=== PATIENT | female | born 1935 | race Caucasian/White ===

== ENCOUNTER 2017-10-26 13:54 | Inpatient (IN) | payer OTHER ==
[~2017-10-26] VITALS: Ht 154.9 cm; Wt 73.7 kg
[2017-10-26] VITALS (8 sets, daily range): BP systolic 122–141; BP diastolic 42–68
[~2017-10-26 13:54] MED LIST: Feosol PO; NOHOMEMEDS; PROTONIX40 MG PO
[2017-10-26 15:12] LABS: CHLORIDE 109 mEq/L (99-109); HEMATOCRIT 15.5 % (36.0-46.0); MCH 14.5 PG (29.0-34.0); MCHC 23.9 G/DL (30.0-36.0); MCV 60.5 FL (83-99); NRBC (%) 0.6 /100 WBC (0-0); RBC DIS.WIDTH-SD 47.8 % (39-53); RED BLOOD COUNT 2.56 M/uL (3.80-5.20); SODIUM 139 mEq/L (136-147); WHITE BLOOD COUNT 4.9 K/uL (4.1-10.2)
[2017-10-26 15:13] LABS: GLUCOSE 101 mg/dL (70-99)
[2017-10-26 15:17] LABS: CREATININE 0.8 mg/dL (0.6-1.3); GFR ESTIMATE (CALCULATED) > 59 mL/min/
[2017-10-26 15:18] LABS: UREA NITROGEN (BUN) 12 mg/dL (9-23)
[2017-10-26 15:23] LABS: HEMOGLOBIN 3.7 G/DL (11.9-15.5)
[2017-10-26 15:29] LABS: PTT 23.6 SEC (25-37)
[2017-10-26 15:40] LABS: TROP-I INTERPRETATION NEGATIVE
[2017-10-26 15:44] LABS: PLAT.SUFFICIENCY ADEQUATE; PLATELET COUNT 352 K/uL (156-360)
[2017-10-26] MEDS ORDERED: VITAMIN D-32000 UNI2 PO (20:24)
[2017-10-26 22:59] LABS: MCHC 27.7 G/DL (30.0-36.0); NRBC (%) 1.3 /100 WBC (0-0); RBC DIS.WIDTH-CV 27.3 % (11.8-14.6); RBC DIS.WIDTH-SD 62.3 % (39-53); WHITE BLOOD COUNT 4.8 K/uL (4.1-10.2)
[2017-10-26 23:00] LABS: HEMOGLOBIN 6.1 G/DL (11.9-15.5); MCH 18.3 PG (29.0-34.0); MCV 66.1 FL (83-99); RED BLOOD COUNT 3.33 M/uL (3.80-5.20)
[2017-10-26 23:37] LABS: IRON 219 MCG/DL (35-150); TRANSFERRIN (TIBC) 322.7 mg/dL (215-380); TRANSFERRIN SATUR. 68 % (20-55)
[2017-10-26 23:41] LABS: APPEARANCE CLEAR ((CLEAR)); BILIRUBIN NEGATIVE; BLOOD NEGATIVE; COLOR YELLOW ((YELLOW)); GLUCOSE (STRIP) NEGATIVE; KETONES NEGATIVE; LEUKOCYTES NEGATIVE; NITRITE NEGATIVE; PROTEIN (STRIP) NEGATIVE; SPECIFIC GRAVITY 1.017 (1.000-1.030); UCUL ADDED? NO; UROBILINOGEN 0.2 MG/DL (0.2-1.0)
[2017-10-26 23:50] LABS: BASOPHIL COUNT 0.1 K/uL (0-0.1); EOSINOPHIL (%) 1.5 % (0-5); EOSINOPHIL COUNT 0.1 K/uL (0-0.3); IMMATURE GRANULOCYTE (%) 0.4 % (0.0-0.7); LYMPHOCYTE (%) 29.4 % (15-42); LYMPHOCYTE COUNT 1.4 K/uL (1.0-2.8); MONOCYTE (%) 8.6 % (3-12); MONOCYTE COUNT 0.4 K/uL (0-0.8); NEUTROPHIL (%) 59.1 % (45-76); NEUTROPHIL COUNT 2.8 K/uL (1.8-6.4); PLAT.SUFFICIENCY ADEQUATE; PLATELET COUNT 302 K/uL (156-360)
[2017-10-27] VITALS (14 sets, daily range): BP systolic 132–163; BP diastolic 62–77
[2017-10-27 00:44] LABS: TROP-I INTERPRETATION NEGATIVE; TROPONIN-I 0.18 ng/mL (0.0-0.30)
[2017-10-27 08:16] LABS: FERRITIN 2 NG/ML (10-291)
[2017-10-27 09:00] LABS: HEMATOCRIT 29.5 % (36.0-46.0); MCH 21.1 PG (29.0-34.0); MCHC 29.8 G/DL (30.0-36.0); PLATELET COUNT 283 K/uL (156-360); RBC DIS.WIDTH-CV 27.8 % (11.8-14.6); RBC DIS.WIDTH-SD 69.2 % (39-53); WHITE BLOOD COUNT 5.2 K/uL (4.1-10.2)
[2017-10-27 09:19] LABS: CHLORIDE 107 MEQ/L (99-109); CREATININE 0.7 MG/DL (0.6-1.3); GFR ESTIMATE (CALCULATED) > 59 mL/min/; GLUCOSE 79 mg/dL (70-99); SODIUM 137 MEQ/L (136-147); TROP-I INTERPRETATION NEGATIVE; TROPONIN-I 0.18 ng/mL (0.0-0.30); UREA NITROGEN (BUN) 10 mg/dL (9-23)
[2017-10-27 09:31] LABS: HEMOGLOBIN 8.8 G/DL (11.9-15.5); MCV 70.7 FL (83-99); RED BLOOD COUNT 4.17 M/uL (3.80-5.20)
[2017-10-27 13:59] LABS: HEMATOCRIT 30.3 % (36.0-46.0); HEMOGLOBIN 8.8 G/DL (11.9-15.5)
[2017-10-27 22:19] LABS: HEMATOCRIT 28.3 % (36.0-46.0); HEMOGLOBIN 8.4 G/DL (11.9-15.5); MCV 70.6 FL (83-99)
[2017-10-28 04:16] VITALS: BP 149/67
[2017-10-28 06:47] LABS: HEMATOCRIT 28.9 % (36.0-46.0); HEMOGLOBIN 8.5 G/DL (11.9-15.5); MCH 21.2 PG (29.0-34.0); MCHC 29.4 G/DL (30.0-36.0); MCV 72.1 FL (83-99); NRBC (%) 0.7 /100 WBC (0-0); PLATELET COUNT 260 K/uL (156-360); RBC DIS.WIDTH-CV 28.8 % (11.8-14.6); RBC DIS.WIDTH-SD 72.5 % (39-53); RED BLOOD COUNT 4.01 M/uL (3.80-5.20); WHITE BLOOD COUNT 4.2 K/uL (4.1-10.2)
[2017-10-28 07:04] VITALS: BP 132/52
[2017-10-28] MEDS ORDERED: CYANOCOBAL1000 MCG/2 SC (10:33)
[2017-10-28 11:00] VITALS: BP 147/65
[2017-10-29 19:08] LABS: HGBE Erythrocyte Cnt 3.31 Mill/uL (3.80-5.10); HGBE Hematocrit 21.3 % (35.0-45.0); HGBE Hemoglobin 6.3 g/dL (11.7-15.5); HGBE MCV 64.4 FL (80.0-100.0); HGBE RDW 30.4 % (11.0-15.0)
[2017-10-29 19:08] LABS: HGBE Erythrocyte Cnt 4.15 Mill/uL (3.80-5.10); HGBE Hematocrit 29.1 % (35.0-45.0); HGBE MCH 21.7 pg (27.0-33.0); HGBE MCV 70.1 FL (80.0-100.0)
== END 2017-10-28 15:19 | disposition home or self-care (01) | DRG 812 ==
LOC: EME 13:54 → 2EAST 20:27 → EDOF 20:27 → 4EAST 20:27 → ENRESERV 20:28 → CANRESERV 20:28 → EDOF 23:05 → ENRESERV 23:06 → 4EAST 10-27 01:16 → ENRESERV 10-27 15:40 → 2EAST 10-27 17:29
PROVIDERS: Anesthesiology; Hospitalist
PROC: 30233N1 Transfusion of Nonautologous Red Blood Cells into Peripheral Vein, Percutaneous Approach (ICD-10-PCS; principal; 2017-10-26)
PROC: 0DB68ZX Excision of Stomach, Via Natural or Artificial Opening Endoscopic, Diagnostic (ICD-10-PCS; 2017-10-28)
DX: D50.8 Other iron deficiency anemias (principal); I51.7 Cardiomegaly; K44.9 Diaphragmatic hernia without obstruction or gangrene; K31.9 Disease of stomach and duodenum, unspecified; D51.3 Other dietary vitamin B12 deficiency anemia; R53.1 Weakness; I70.0 Atherosclerosis of aorta; Z85.828 Personal history of other malignant neoplasm of skin; Z87.891 Personal history of nicotine dependence; Z90.710 Acquired absence of both cervix and uterus
CPT/HCPCS: 71010; 80048; 81003; 82272; 82607; 82728; 82746; 83021 90; 83516 90; 83540; 84466; 84484; 85014; 85014 90; 85018; 85018 90; 85025; 85027; 85041 90; 85610; 85730; 86850; 86900; 86901; 86920; 88305; 88342 TC; 93005; 99281; 99285; J1940; J3420; J7030; P9016